=== PATIENT | male | born 1980 | race Caucasian/White ===

== ENCOUNTER 2024-12-10 10:53 | Emergency (ER) | payer OTHER, SELFPAY ==
[2024-12-10 11:05] VITALS: BP 125/74; PULSE 66; RESP 18; TEMP 36.4; O2SAT 100
--- NOTE | 2024-12-10 11:25 | ED_ITS ---
HPI - Male Genitourinary General Chief complaint: Urogenital-Male Stated complaint: Difficulty urinating Time Seen by Provider: 12/10/24 11:16 Source: patient and RN notes reviewed Mode of arrival: ambulatory Limitations: no limitations History of Present Illness HPI Narrative: Patient presents today complaining of difficulty initiating a urine stream, dribbling after voiding x3 days. States that he was feeling intense bladder pressure last night and could not urinate more than a very small amount. This morning, he felt that he was able to urinate a large amount, but wanted to come be evaluated anyway. Denies pain or blood in the urine or back pain. Related Data Allergies Allergy/AdvReac Type Severity Reaction Status Date / Time No Known Allergies Allergy Unknown Verified 12/10/24 11:06 [facility] Comments At time of signature, I have reviewed and agree with nursing past medical, surgical, social and family history unless otherwise noted. Please see nursing chart for further information. There is no relevant family history pertinent to the presenting complaint Exam Narrative: GENERAL: Well-appearing, well-nourished, and in no acute distress. HEAD: Normocephalic, atraumatic. EYES: EOMI. No redness or drainage. Conjunctivae normal. ENT: Mucous membranes pink and moist. NECK: Normal AROM. CHEST: No respiratory distress. Clear to auscultation. HEART: Regular rate and rhythm. No murmur appreciated. ABDOMEN: Soft, nontender, nondistended, normal active bowel sounds. EXTREMITIES: Normal range of motion. No edema. SKIN: Warm, dry, no rash. Capillary refill normal. Normal skin turgor. NEURO: No focal deficits. Alert and oriented x3. Gait steady. PSYCH: Normal affect. No signs of depression or anxiety. Course Course Level of Care: Express Care Visit Vital Signs Vital signs: Vital Signs Temperature 97.5 F L 12/10/24 11:05 Pulse Rate 66 12/10/24 11:05 Respiratory Rate 18 12/10/24 11:05 Blood Pressure 125/74 12/10/24 11:05 Pulse Oximetry 100 12/10/24 11:05 Oxygen Delivery Room Air 12/10/24 11:05 Temperature 97.5 F L 12/10/24 11:05 Pulse Rate 66 12/10/24 11:05 Respiratory Rate 18 12/10/24 11:05 Blood Pressure 125/74 12/10/24 11:05 Pulse Oximetry 100 12/10/24 11:05 Oxygen Delivery Room Air 12/10/24 11:05 Reviewed MDM - Male Genitourinary MDM Narrative Medical decision making narrative: Patient presents today complaining of difficulty initiating a urine stream, dribbling after voiding x3 days. States that he was feeling intense bladder pressure last night and could not urinate more than a very small amount. Just prior to arrival this morning, patient was able to void large volume without difficulty. Upon arrival, patient's exam is normal. After drinking some water he was able to void and felt that his bladder is empty. Urinalysis shows 1+ leukocytes but is otherwise negative. Patient denies any antihistamine use, states he took tylenol yesterday, but no other medications recently. We discussed ER transfer, but since symptoms have significantly improved, he will hold off unless they return. Patient agrees with plan. VSS. Differential Diagnosis Differential diagnosis: Likely urinary tract infection, urethritis, prostatitis, acute retention of urine and other (urethral stone) Lab Data Attestation: I reviewed the patient's lab results. Labs: Lab Results 12/10/24 Range/Units 11:48 POC Urine Color Yellow POC Urine Clarity Clear POC Urine pH 7.0 POC Ur Specif [place] 1.020 POC Urine Protein Negative (Negative) POC Ur Glucose (UA) Negative (Negative) POC Urine Ketones Negative (Negative) POC Urine Blood Negative (Negative) POC Urine Nitrite Negative (Negative) POC Urine Bilirubin Negative (Negative) POC Urine Urobilinogen 0.2 POC U Leukocyte Esteras 1+ (Negative) Critical Care Time Critical Care Time Critical Care Time: No Discharge Plan Discharge Clinical Impression: Acute urinary retention Patient Disposition: Home Condition: Stable Instructions: Antibiotic Form, Urinary Retention in Men (ED) Additional Instructions: Please take the Keflex as prescribed. Continue to drink plenty of water. As discussed, if you feel bladder pressure again and cannot pass urine, please go to the ER immediately for further evaluation. Your blood pressure was elevated above 120/80 today at Urgent Care. This puts you above the threshold for follow up. Please schedule a followup visit with your personal physician as soon as possible, for further evaluation and treatment. Even blood pressure exceeding 120/80 may indicate pre-hypertension. Patient Language: Latvian Prescriptions: New cephalexin 500 mg capsule 500 mg PO BID 7 Days Qty: 14 0RF Follow-up/Referrals: UNKNOWN,DOCTOR [Primary Care Provider] Stand Alone Forms: Work/School Release IP Time of Disposition: 11:56
--- OUTSIDE RECORDS SUMMARY | 2024-12-10 11:26 | XMS_ITS | Data Portability ---
Author Organization [employer], Main Office Address [address] [place] [address] Assessment No assessment recorded. Plan of Treatment Reminders Order Date Submit Date Provider Last Modified By Organization Details Last Modified Time Details Appointments None record ed. Lab None record ed. Referral None record ed. Procedures None record ed. Surgeries None record ed. Imaging None record ed. Medication Orders None record ed. Patient TargetsNo targets recorded. Patient InstructionsNo instructions recorded. Reason for Referral None Reported. Problems Name Problem SNOMED Code Status Onset Date Resolution Date Notes Provider Name and Address Organization Details Recorded Time Paresthesia of upper limb 51151982 Active 024 ODELL Mcmanus-Ramesh [address] [facility] [address], [address] [facility] [employer] 4 08:39:37 Problem Notes None recorded. Medical Equipment None Reported. Allergies No known drug allergies Medications Name Sig Start Date Stop Date Status Note LastModified by Organization Details LastModified Time cyclobenzap rine 10 mg tablet TK 1 T PO HS PRN DO NOT TAKE WHILE WORKING, DRIVING 06/17 completed Not Available Not Available Not Available amoxicillin 500 mg capsule TK 1 C PO Q 12 H FOR 7 DAYS 02/10 completed Not Available Not Available Not Available clindamycin HCl 300 mg capsule 12/27 completed Not Available Not Available Not Available ibuprofen 800 mg tablet 12/27 completed Not Available Not Available Not Available hydrocodone 5 mg-acetamin ophen 325 mg tablet Take 1 tablet twice a day by oral route as needed for 10 days. 06/17 completed Not Available Not Available Not Available prednisone 20 mg tablet Take 2 tablets every day by oral route for 5 days. active Not Available Not Available No t Available clindamycin HCl 150 mg capsule 12/27 completed Not Available Not Available Not Available sulfamethox azole 800 mg-trimetho prim 160 mg tablet TK 1 T PO Q 12 H FOR 10 DAYS 07/19 completed Not Available Not Available Not Available hydrocodone 10 mg-acetamin ophen 325 mg tablet 12/27 completed Not Available Not Available Not Available amoxicillin 500 mg tablet Take 1 tablet every 12 hours by oral route for 7 days. 02/10 completed Not Available Not Available Not Available amoxicillin 875 mg tablet Take 1 tablet every 12 hours by oral route for 10 days. active Not Available Not Available No t Available hydrocodone 7.5 mg-acetamin ophen 325 mg tablet 12/27 completed Not Available Not Available Not Available cephalexin 500 mg capsule 12/27 completed Not Available Not Available Not Available neomycin-po lymyxin-dex ameth 3.5 mg/mL-10,00 0 unit/mL-0.1 % eye drops INSTIL 1-2 DROPS INTO AFFECTED EYE EVERY 4-6 HOURS FOR 3 DAYS 06/17 completed Not Available Not Available Not Available gabapentin 300 mg capsule Take 1 capsule 3 times a day by oral route for 30 days. 06/17 completed Not Available Not Available Not Available hydrocortis one 2.5 % topical cream AROLDO THIN LAYER EXT AA BID 02/10 completed Not Available Not Available Not Available methylpredn isolone 4 mg tablets in a dose pack FPD 02/10 completed Not Available Not Available Not Available ketoconazol e 2 % topical cream APPLY TO THE AFFECTED AREA(S) BY TOPICAL ROUTE ONCE DAILY 02/10 completed Not Available Not Available Not Available oxybutynin chloride 5 mg tablet Take 1 tablet every day by oral route for 30 days. 02/10 completed Not Available Not Available Not Available fluticasone propionate 50 mcg/actuati on nasal spray,suspe nsion [place] 1 spray every day by intranasa l route for 30 days. active Not Available Not Available No t Available Boostrix Tdap 2.5 Lf unit-8 mcg-5 Lf/0.5 mL intramuscul ar syringe ADM 0.5ML IM UTD 02/10 completed Not Available Not Available Not Available Virtussin AC 10 mg-100 mg/5 mL oral liquid TK 10 ML PO Q 4 H PRN FOR 4 DAYS 02/10 completed Not Available Not Available Not Available Vitals Date Recorded Body weight Body mass index (BMI) Body height Body temperature Heart rate Oxygen saturation Oxygen saturation in Arterial blood by Pulse oximetry Systolic And Diastolic Provider Name and Address Organization Details Last Updated DateTime 4 09746.1 1 g 22.9 kg/m2 182.88 cm 98.7 [degF] 86 /min 100 % 100 % 132/84 mm[Hg] Robyn Saunders RN [place] - [facility] [employer] [facility] 4 08:35:06 Social History None recorded. Functional Status None recorded. Mental Status None recorded. Family History Relationship Description Onset Age of this Age Resolved Age Notes LastModified by Organization Details LastModified Time Maternal Grandmother Malignant neoplasm of breast [email or web address] Not available 2023 08:32:55 Maternal Grandfather Family history of stroke [email or web address] Not available 2023 08:33:03 Medical History No medical history recorded. 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)-pain rated at 5 on average, uses nothing for pain-ROM and strength are limited to pain, pain worse with end range flexion-en couraged use of supportive sleeve-santhosh l obtain EMG in the future if symptoms continue-p t declines at this time Health Concerns Section Related Observation LastModified by Organization Detai ls LastModified Time None Recorded Concern Status LastModified by Organization Details LastModified Time None Recorded Advance Directives Directive None Recorded Payers Insurance Date Sequence Insurance Name Policy Number Policy Styles Covered Member ID Styles Member ID Guarantor Name 06/18/2023 1 [facility] [id number] Mele Leonardo [id number] Mele Leonardo 10/14/2023 1 [facility] [id number] Mele Leonardo [id number] Mele Leonardo Notes Date Note Type Note Provider Name and Address Organization Details Recorded Time 06/18/2023 text/html pt is here to establish care/discuss lump in arm SAM McmanusP-C [address] [facility], [facility] [address], [place], [address], [place] [facility] 06/18/2023 08:57:28
--- OUTSIDE RECORDS SUMMARY | 2024-12-10 11:26 | XMS_ITS | Clinical Summary ---
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 Office Visit [facility] Family Medicine - [place] [address] [facility] [address] [place] [address] [phone] Mela Smith MD [address] [place] [id number] Health Maintenance Due Date Last Done Comments Annual Physical 1985 Hepatitis C 2000 DTaP, Tdap and Td Vaccines ( 1 - Tdap) 2001 Hepatitis B Vaccines (1 of 3 - 19+ 3-dose series) 2001 HPV Vaccines (1 - 3-dose SCD M series) 2009 COVID-19 Vaccine (2023-2 5 season) 2024 Influenza Adult (#1) 2024 Meningococcal B Vaccine Aged Out No l onger eligible based on patient's age to complete this topic Meningococcal Vaccine Aged Out No la luis eligible based on patient's age to complete this topic Pneumococcal Vaccine: Pediat rics (0 to 5 Years) and At-Risk Patients (6 to 49 Years) Aged Out No longer eligible b ased on patient's age to complete this topic RSV Immunizations Under 20 Months Aged Out No longer eligible based on patient's age to complete this topic Insurance [facility]
[2024-12-10 11:51] LABS: EDUAAPPEAR Clear; EDUABILI Negative (Negative); EDUABLOOD Negative (Negative); EDUACOLOR1 Yellow; EDUAGLUCOSE Negative (Negative); EDUAKETONE Negative (Negative); EDUALEUKO 1+ (Negative); EDUANITRATE Negative (Negative); EDUAPH 7.0; EDUAPROTEIN Negative (Negative); EDUASPGRAVITY 1.020; EDUAUROBILI 0.2
== END 2024-12-10 12:01 | disposition home or self-care (01) ==
PROVIDERS: Emergency Provider Nurse Practitioner
DX: R33.9 Retention of urine, unspecified (principal)
CPT/HCPCS: 81003; 87086; 99213; G0463